=== PATIENT | male | born 1985 | race Caucasian/White ===

== ENCOUNTER 2017-06-09 21:39 | Emergency (ER) | payer MEDICAID ==
--- NOTE | 2017-06-09 21:43 | EDPHY ---
HPI/HX/ROS/PE/MDM Narrative: CHIEF COMPLAINT: Intoxication HPI: The patient is a 31 y/o male arriving via EMS from the [facility] for evaluation. Per EMS, staff at the [facility] reports patient was brought in by PD after he urinated on a car around 18:00, about 4 hours ago. At some point tonight while at detox he had a ILIANA 244. Per EMS, staff at the [facility] said he was not answering questions appropriately and they suspected hallucinogen use and they believed his altered mentation to be beyond what their staff is comfortable with. The patient denies taking illicit substances or any complaints. REVIEW OF SYSTEMS: Aside from elements discussed in the HPI, a comprehensive 10-point review of systems was reviewed and is negative. PMH: Alcohol abuse SOCIAL HISTORY: Homeless PHYSICAL EXAM: General:Patient is alert, in no acute distress. ENT:Eyes show large pupils bilaterally to inspection. ENT inspection normal. Neck: Normal inspection. Full range of motion. Respiratory:No respiratory distress. Breath sounds normal bilaterally. Cardiovascular: Regular rate and rhythm. Strong peripheral pulses. Normal cap refill. Abdomen:The abdomen is nontender to palpation. There are no peritoneal signs. Back: Normal to inspection. No tenderness to palpation. Skin: Normal color. No rash. Warm and dry. Extremities: Normal appearance. Full range of motion. Neuro: Oriented x3. Normal motor function. Normal sensory function. Ambulatory. Normal gait. (Timoteo Armendariz) ED Course: This is an intoxicated 31 y/o male who arrives from the [facility] with no complaints. He is ambulatory without assistance. Breathalyzer here is 195. Patient is becoming more agitated. 5mg IV Haldol administered. (Timoteo Armendariz) MDM: 0337: This patient ambulated well throughout the emergency room. Clinically sober. Stable gait. He has no complaints. Safe for discharge. He will be dispositioned to the [facility]. ([address]) - Data Points Medications Given: Discontinued Medications Haloperidol Lactate (Haldol Injection) 5 mg IVP/IM EDNOW ONE Stop: 06/09/17 22:27 Last Admin: 06/09/17 22:34 Dose: 5 mg General Initial Vital Signs: Initial Vital Signs Temperature (C) 36.4 C 06/09/17 21:48 Heart Rate 75 06/09/17 21:48 Respiratory Rate 17 06/09/17 21:48 Blood Pressure 135/69 H 06/09/17 21:48 O2 Sat (%) 91 L 06/09/17 21:48 O2 Delivery Mode Room Air Allergies/Adverse Reactions: No Known Allergies Allergy (Unverified 06/09/17 21:57) Home Medications: Medication Instructions Recorded NK [No Known Home Meds] 06/09/17 Departure - Departure Disposition: Home, Routine, Self-Care Clinical Impression: Alcoholic intoxication Qualifiers: Complication of substance-induced condition: uncomplicated Qualified Code(s): F10.920 - Alcohol use, unspecified with intoxication, uncomplicated Condition: Good Instructions: Alcohol Intoxication (ED) Additional Instructions: Avoid abuse of alcohol. Follow up with your primary care provider for unimproved symptoms over the next 1-2 days. Referrals: [facility] [Outside] - As per Instructions Report Scribed for: Timoteo Armendariz Report Scribed by: Aurelia Brennan Date of Report: 06/09/17 Time of Report: 21:47 Physician Review and Approval Statement: Portions of this note were transcribed by an ED scribe. I personally performed the history, physical exam, and medical decision making; and confirm the accuracy of the information in the transcribed note.
--- NOTE | 2017-06-09 21:43 | EDPHY ---
HPI/HX/ROS/PE/MDM Narrative: CHIEF COMPLAINT: Intoxication HPI: The patient is a 31 y/o male arriving via EMS from the [facility] for evaluation. Per EMS, staff at the [facility] reports patient was brought in by PD after he urinated on a car around 18:00, about 4 hours ago. At some point tonight while at detox he had a ILIANA 244. Per EMS, staff at the [facility] said he was not answering questions appropriately and they suspected hallucinogen use and they believed his altered mentation to be beyond what their staff is comfortable with. The patient denies taking illicit substances or any complaints. REVIEW OF SYSTEMS: Aside from elements discussed in the HPI, a comprehensive 10-point review of systems was reviewed and is negative. PMH: Alcohol abuse SOCIAL HISTORY: Homeless PHYSICAL EXAM: General:Patient is alert, in no acute distress. ENT:Eyes show large pupils bilaterally to inspection. ENT inspection normal. Neck: Normal inspection. Full range of motion. Respiratory:No respiratory distress. Breath sounds normal bilaterally. Cardiovascular: Regular rate and rhythm. Strong peripheral pulses. Normal cap refill. Abdomen:The abdomen is nontender to palpation. There are no peritoneal signs. Back: Normal to inspection. No tenderness to palpation. Skin: Normal color. No rash. Warm and dry. Extremities: Normal appearance. Full range of motion. Neuro: Oriented x3. Normal motor function. Normal sensory function. Ambulatory. Normal gait. (Timoteo Armendariz) ED Course: This is an intoxicated 31 y/o male who arrives from the [facility] with no complaints. He is ambulatory without assistance. Breathalyzer here is 195. Patient is becoming more agitated. 5mg IV Haldol administered. (Timoteo Armendariz) MDM: 0337: This patient ambulated well throughout the emergency room. Clinically sober. Stable gait. He has no complaints. Safe for discharge. He will be dispositioned to the [facility]. ([address]) - Data Points Medications Given: Discontinued Medications Haloperidol Lactate (Haldol Injection) 5 mg IVP/IM EDNOW ONE Stop: 06/09/17 22:27 Last Admin: 06/09/17 22:34 Dose: 5 mg General Initial Vital Signs: Initial Vital Signs Temperature (C) 36.4 C 06/09/17 21:48 Heart Rate 75 06/09/17 21:48 Respiratory Rate 17 06/09/17 21:48 Blood Pressure 135/69 H 06/09/17 21:48 O2 Sat (%) 91 L 06/09/17 21:48 O2 Delivery Mode Room Air Allergies/Adverse Reactions: No Known Allergies Allergy (Unverified 06/09/17 21:57) Home Medications: Medication Instructions Recorded NK [No Known Home Meds] 06/09/17 Departure - Departure Disposition: Home, Routine, Self-Care Clinical Impression: Alcoholic intoxication Qualifiers: Complication of substance-induced condition: uncomplicated Qualified Code(s): F10.920 - Alcohol use, unspecified with intoxication, uncomplicated Condition: Good Instructions: Alcohol Intoxication (ED) Additional Instructions: Avoid abuse of alcohol. Follow up with your primary care provider for unimproved symptoms over the next 1-2 days. Referrals: [facility] [Outside] - As per Instructions Report Scribed for: Timoteo Armendariz Report Scribed by: Aurelia Brennan Date of Report: 06/09/17 Time of Report: 21:47 Physician Review and Approval Statement: Portions of this note were transcribed by an ED scribe. I personally performed the history, physical exam, and medical decision making; and confirm the accuracy of the information in the transcribed note.
--- NOTE | 2017-06-09 21:43 | EDPHY ---
HPI/HX/ROS/PE/MDM Narrative: CHIEF COMPLAINT: Intoxication HPI: The patient is a 31 y/o male arriving via EMS from the [facility] for evaluation. Per EMS, staff at the [facility] reports patient was brought in by PD after he urinated on a car around 18:00, about 4 hours ago. At some point tonight while at detox he had a ILIANA 244. Per EMS, staff at the [facility] said he was not answering questions appropriately and they suspected hallucinogen use and they believed his altered mentation to be beyond what their staff is comfortable with. The patient denies taking illicit substances or any complaints. REVIEW OF SYSTEMS: Aside from elements discussed in the HPI, a comprehensive 10-point review of systems was reviewed and is negative. PMH: Alcohol abuse SOCIAL HISTORY: Homeless PHYSICAL EXAM: General:Patient is alert, in no acute distress. ENT:Eyes show large pupils bilaterally to inspection. ENT inspection normal. Neck: Normal inspection. Full range of motion. Respiratory:No respiratory distress. Breath sounds normal bilaterally. Cardiovascular: Regular rate and rhythm. Strong peripheral pulses. Normal cap refill. Abdomen:The abdomen is nontender to palpation. There are no peritoneal signs. Back: Normal to inspection. No tenderness to palpation. Skin: Normal color. No rash. Warm and dry. Extremities: Normal appearance. Full range of motion. Neuro: Oriented x3. Normal motor function. Normal sensory function. Ambulatory. Normal gait. (Timoteo Armendariz) ED Course: This is an intoxicated 31 y/o male who arrives from the [facility] with no complaints. He is ambulatory without assistance. Breathalyzer here is 195. Patient is becoming more agitated. 5mg IV Haldol administered. (Timoteo Armendariz) MDM: 0337: This patient ambulated well throughout the emergency room. Clinically sober. Stable gait. He has no complaints. Safe for discharge. He will be dispositioned to the [facility]. ([address]) - Data Points Medications Given: Discontinued Medications Haloperidol Lactate (Haldol Injection) 5 mg IVP/IM EDNOW ONE Stop: 06/09/17 22:27 Last Admin: 06/09/17 22:34 Dose: 5 mg General Initial Vital Signs: Initial Vital Signs Temperature (C) 36.4 C 06/09/17 21:48 Heart Rate 75 06/09/17 21:48 Respiratory Rate 17 06/09/17 21:48 Blood Pressure 135/69 H 06/09/17 21:48 O2 Sat (%) 91 L 06/09/17 21:48 O2 Delivery Mode Room Air Allergies/Adverse Reactions: No Known Allergies Allergy (Unverified 06/09/17 21:57) Home Medications: Medication Instructions Recorded NK [No Known Home Meds] 06/09/17 Departure - Departure Disposition: Home, Routine, Self-Care Clinical Impression: Alcoholic intoxication Qualifiers: Complication of substance-induced condition: uncomplicated Qualified Code(s): F10.920 - Alcohol use, unspecified with intoxication, uncomplicated Condition: Good Instructions: Alcohol Intoxication (ED) Additional Instructions: Avoid abuse of alcohol. Follow up with your primary care provider for unimproved symptoms over the next 1-2 days. Referrals: [facility] [Outside] - As per Instructions Report Scribed for: Timoteo Armendariz Report Scribed by: Aurelia Brennan Date of Report: 06/09/17 Time of Report: 21:47 Physician Review and Approval Statement: Portions of this note were transcribed by an ED scribe. I personally performed the history, physical exam, and medical decision making; and confirm the accuracy of the information in the transcribed note.
[2017-06-09] MEDS ORDERED: HALOPERIDOL LACT 5 MG/ML INJ IVP/IM ONE (22:26)
[2017-06-10 04:08] VITALS: BP 142/78; PULSE 71; RESP 18; TEMP 98.1; O2SAT 95
== END 2017-06-10 04:08 | disposition home or self-care (01) ==
DX: F10.920 Alcohol use, unspecified with intoxication, uncomplicated (principal)
CPT/HCPCS: 96374